=== PATIENT | male | born 1960 | race Caucasian/White ===

== ENCOUNTER 2018-08-28 17:53 | Emergency (ER) | payer MEDICAID ==
[~2018-08-28] VITALS: Ht 188 cm; Wt 104.5 kg
[2018-08-28 19:51] LABS: BASOPHILS % (AUTO) 0.8 % (0.0-2.0); EOSINOPHILS % (AUTO) 0.4 % (1.0-6.0); HEMATOCRIT 50.4 % (41-53); HEMOGLOBIN 17.5 g/dL (13.5-17.5); LYMPHOCYTES # (AUTO) 1.7 K/uL (1.0-4.8); LYMPHOCYTES % (AUTO) 18.4 % (22.0-44.0); MEAN CORPUSCULAR HEMOGLOBIN 32.1 pg (26.0-34.0); MEAN CORPUSCULAR HGB CONC 34.8 G/dL (31.0-37.0); MEAN CORPUSCULAR VOLUME 92 fL (80-100); MONOCYTES # (AUTO) 0.6 K/uL (0.1-1.0); MONOCYTES % (AUTO) 5.9 % (2.0-9.0); NEUTROPHILS % (AUTO) 74.5 % (40.0-70.0); PLATELET COUNT (AUTO) 193 K/uL (150-450); RED BLOOD CELL COUNT(AUTO) 5.46 MIL/uL (4.50-5.90); RED CELL DISTRIBUTION WIDTH 13.8 % (11.5-14.5)
[2018-08-28 20:05] LABS: ANION GAP 11 mmol/L (8-16); CALCIUM, TOTAL 9.5 mg/dL (8.8-10.5); CARBON DIOXIDE 26 mmol/L (22-29); CHLORIDE 105 mmol/L (98-107); CREATININE 0.79 mg/dL (0.60-1.30); GLOMERULAR FILTR. RATE CALC > 60 mL/min (>60); GLUCOSE,RANDOM 95 mg/dL (70-110); SODIUM SERUM 142 mmol/L (136-145); UREA NITROGEN, BLOOD 9 mg/dL (7-18)
[2018-08-28 20:09] LABS: ALANINE AMINOTRANSFERASE 29 U/L (12-78); ALBUMIN 4.1 g/dL (3.4-5.0); ALKALINE PHOSPHATASE 97 U/L (46-116); ASPARTATE AMINOTRANSFERASE 20 U/L (15-37); BILIRUBIN,TOTAL 1.2 mg/dL (0.1-1.0); TOTAL PROTEIN, SERUM 7.7 g/dL (6.4-8.2)
[2018-08-28 20:54] VITALS: BP 134/89
[2018-08-28] MEDS ORDERED: LORazepam 1 MG TABLET PO ONE (21:00)
== END 2018-08-28 20:56 | disposition home or self-care (01) ==
LOC: EMS 17:55
DX: F41.9 Anxiety disorder, unspecified (principal); F17.210 Nicotine dependence, cigarettes, uncomplicated
CPT/HCPCS: 36415; 80053; 85025; 99284; 99406; G0480

== ENCOUNTER 2018-11-05 07:53 | Emergency (ER) | payer MEDICAID ==
[~2018-11-05] VITALS: Ht 188 cm; Wt 100.0 kg
[2018-11-05] MEDS ORDERED: LORA1TAB3 PO (08:11)
[2018-11-05] MEDS ORDERED: SODIUM CHLORIDE 0.9% 1,000 ML IV ONE ×2 (08:30→09:45)
[2018-11-05 09:03] LABS: BASOPHILS % (AUTO) 1.6 % (0.0-2.0); EOSINOPHILS % (AUTO) 1.8 % (1.0-6.0); HEMATOCRIT 46.5 % (41-53); LYMPHOCYTES # (AUTO) 0.9 K/uL (1.0-4.8); MEAN CORPUSCULAR HEMOGLOBIN 31.6 pg (26.0-34.0); MEAN CORPUSCULAR HGB CONC 34.5 G/dL (31.0-37.0); MEAN CORPUSCULAR VOLUME 92 fL (80-100); MONOCYTES # (AUTO) 0.3 K/uL (0.1-1.0); MONOCYTES % (AUTO) 6.1 % (2.0-9.0); NEUTROPHILS # (AUTO) 3.9 K/uL (1.8-7.7); NEUTROPHILS % (AUTO) 73.5 % (40.0-70.0); PLATELET COUNT (AUTO) 161 K/uL (150-450); RED BLOOD CELL COUNT(AUTO) 5.07 MIL/uL (4.50-5.90); RED CELL DISTRIBUTION WIDTH 12.9 % (11.5-14.5)
[2018-11-05 09:08] LABS: ANION GAP 8 mmol/L (8-16); CARBON DIOXIDE 27 mmol/L (22-29); CHLORIDE 106 mmol/L (98-107); CREATININE 0.79 mg/dL (0.60-1.30); GLOMERULAR FILTR. RATE CALC > 60 mL/min (>60); GLUCOSE,RANDOM 95 mg/dL (70-110); POTASSIUM 3.9 mmol/L (3.5-5.1); SODIUM SERUM 141 mmol/L (136-145); UREA NITROGEN, BLOOD 9 mg/dL (7-18)
[2018-11-05 09:15] LABS: ALANINE AMINOTRANSFERASE 45 U/L (12-78); ALBUMIN 4.4 g/dL (3.4-5.0); ALKALINE PHOSPHATASE 82 U/L (46-116); ASPARTATE AMINOTRANSFERASE 31 U/L (15-37); BILIRUBIN,TOTAL 1.2 mg/dL (0.1-1.0); TOTAL PROTEIN, SERUM 7.4 g/dL (6.4-8.2)
[2018-11-05 11:35] VITALS: BP 124/76
== END 2018-11-05 11:48 | disposition home or self-care (01) ==
LOC: EMS 07:57
DX: J32.9 Chronic sinusitis, unspecified (principal); R42 Dizziness and giddiness; F17.210 Nicotine dependence, cigarettes, uncomplicated; F41.9 Anxiety disorder, unspecified
CPT/HCPCS: 36415; 70450; 80053; 85025; 93005; 96360; 96361; 99285; 99406; J7030

== ENCOUNTER 2021-04-30 18:23 | Emergency (ER) | payer MEDICAID ==
[~2021-04-30] VITALS: Ht 188 cm; Wt 100.0 kg
[~2021-04-30 18:23] MED LIST: LORA-1000 PO
[2021-04-30 21:19] VITALS: BP 141/77
== END 2021-04-30 22:32 | disposition home or self-care (01) ==
LOC: EMS 18:23
DX: H93.13 Tinnitus, bilateral (principal); F41.9 Anxiety disorder, unspecified; F17.210 Nicotine dependence, cigarettes, uncomplicated
CPT/HCPCS: 70450; 99284

== ENCOUNTER 2023-08-03 19:34 | Emergency (ER) | payer MEDICAID ==
[~2023-08-03] VITALS: Ht 188 cm; Wt 102.3 kg
[2023-08-03 19:39] VITALS: TEMP 98.9
[2023-08-03] MEDS ORDERED: [UNRECOGNIZED DRUG - OTHER] PO (21:26)
[2023-08-03] MEDS ORDERED: [UNRECOGNIZED DRUG - OTHER] PO (21:26)
[2023-08-03] MEDS ORDERED: METHOCARBAMOL 100 MG/ML 10 ML VIAL IVP ONE (21:45)
[2023-08-03] MEDS ORDERED: KETOROLAC TROMETHAMINE 30 MG/ML VIAL IVP ONE (21:45)
[2023-08-03] MEDS ORDERED: ONDANSETRON HCL 4 MG/2 ML VIAL IVP ONE (21:45)
[2023-08-03] MEDS ORDERED: MORPHINE SULFATE 4 MG/ML SYRINGE IVP ONE (21:45)
[2023-08-03 22:51] VITALS: BP 150/84; PULSE 85; RESP 16
== END 2023-08-03 23:19 | disposition home or self-care (01) ==
LOC: EMS 19:36
DX: M54.32 Sciatica, left side (principal); F41.9 Anxiety disorder, unspecified; M19.90 Unspecified osteoarthritis, unspecified site; F17.210 Nicotine dependence, cigarettes, uncomplicated
CPT/HCPCS: 99284; 96374; 96375; J1885; J2270; J2405; J2800

== ENCOUNTER 2024-12-07 07:57 | Emergency (ER) | payer MEDICAID ==
[~2024-12-07] VITALS: Ht 188 cm; Wt 104.5 kg
[~2024-12-07 07:57] MED LIST changes: +[UNRECOGNIZED DRUG - OTHER] PO; +[UNRECOGNIZED DRUG - OTHER] PO
[2024-12-07 08:08] VITALS: BP 135/85; PULSE 87; RESP 20; TEMP 97.9; O2SAT 94
[2024-12-07 08:19] LABS: COVID AG,FIA SOURCE NASAL SWAB
[2024-12-07 08:56] LABS: BASOPHILS % (AUTO) 0.6 % (0.0-2.0); EOSINOPHILS % (AUTO) 3.5 % (1.0-6.0); HEMATOCRIT 47.8 % (41-53); HEMOGLOBIN 16.1 g/dL (13.5-17.5); LYMPHOCYTES # (AUTO) 1.3 K/uL (1.0-4.8); MEAN CORPUSCULAR HEMOGLOBIN 30.9 pg (26.0-34.0); MEAN CORPUSCULAR HGB CONC 33.7 G/dL (31.0-37.0); MEAN CORPUSCULAR VOLUME 92 fL (80-100); MONOCYTES # (AUTO) 0.6 K/uL (0.1-1.0); MONOCYTES % (AUTO) 6.9 % (2.0-9.0); NEUTROPHILS # (AUTO) 7.1 K/uL (1.8-7.7); PLATELET COUNT (AUTO) 160 K/uL (150-450); RED CELL DISTRIBUTION WIDTH 13.4 % (11.5-14.5); WHITE BLOOD COUNT (AUTO) 9.4 K/uL (4.5-11.0)
[2024-12-07 08:58] LABS: SARS-COV2 (COVID) ANTIGEN,FIA Negative (Negative)
[2024-12-07 08:59] LABS: INFLUENZA TYPE A NEGATIVE FOR TYPE A (NEGATIVE); INFLUENZA TYPE B NEGATIVE FOR TYPE B (NEGATIVE)
[2024-12-07 09:04] LABS: ANION GAP 7 mmol/L (8-16); CALCIUM, TOTAL 8.7 mg/dL (8.8-10.5); CARBON DIOXIDE 28 mmol/L (22-29); CHLORIDE 105 mmol/L (98-107); CREATININE 0.82 mg/dL (0.60-1.30); GLOMERULAR FILTR. RATE CALC > 60 mL/min (>60); GLUCOSE,RANDOM 98 mg/dL (70-110); POTASSIUM 4.1 mmol/L (3.5-5.1); SODIUM SERUM 140 mmol/L (136-145); UREA NITROGEN, BLOOD 13 mg/dL (7-18)
[2024-12-07 09:14] LABS: TROPONIN I-HIGH SENSITIVITY 40 ng/L (<76)
[2024-12-07 09:30] LABS: B-TYPE NATRIURETIC PEPTIDE 27 pg/mL (0-100)
[2024-12-07 09:32] LABS: ALANINE AMINOTRANSFERASE 45 U/L (12-78); ALBUMIN 3.7 g/dL (3.4-5.0); ALKALINE PHOSPHATASE 127 U/L (46-116); ASPARTATE AMINOTRANSFERASE 30 U/L (15-37); BILIRUBIN,TOTAL 1.4 mg/dL (0.1-1.0); CREATINE KINASE, TOTAL ONLY 108 U/L (39-308); TOTAL PROTEIN, SERUM 7.1 g/dL (6.4-8.2)
[2024-12-07] MEDS ORDERED: PRED-554 PO (09:39)
[2024-12-07] MEDS ORDERED: AZIT-164 PO (09:39)
[2024-12-07] MEDS: PredniSONE 20 MG TABLET PO ONE (10:01)
[2024-12-07] MEDS: AZITHROMYCIN 500 MG TABLET PO ONE (10:02)
== END 2024-12-07 10:08 | disposition home or self-care (01) ==
LOC: EMS 07:58
DX: J40 Bronchitis, not specified as acute or chronic (principal); F41.9 Anxiety disorder, unspecified; M19.90 Unspecified osteoarthritis, unspecified site; F17.210 Nicotine dependence, cigarettes, uncomplicated; Z79.899 Other long term (current) drug therapy; Z86.718 Personal history of other venous thrombosis and embolism; Z20.822 Contact with and (suspected) exposure to COVID-19
CPT/HCPCS: 99285; 71045; 87426; 80048; 80076; 82550; 83880; 84484; 85025; 87804; 36415; 93005; J0456; J7512

== ENCOUNTER 2025-05-02 16:48 | Emergency (ER) | payer MEDICAID ==
[~2025-05-02] VITALS: Ht 188 cm; Wt 104.5 kg
[~2025-05-02 16:48] MED LIST changes: +AZIT-164 PO; -LORA-1000 PO; +LORA1TAB25 PO; +PRED-554 PO
[2025-05-02 16:56] VITALS: BP 112/70; PULSE 81; RESP 19; TEMP 98.2; O2SAT 95
[2025-05-02 17:25] LABS: COVID AG,FIA SOURCE NASAL SWAB
[2025-05-02 17:47] LABS: SARS-COV2 (COVID) ANTIGEN,FIA Negative (Negative)
[2025-05-02 17:48] LABS: INFLUENZA TYPE A NEGATIVE FOR TYPE A (NEGATIVE); INFLUENZA TYPE B NEGATIVE FOR TYPE B (NEGATIVE)
[2025-05-02] MEDS: GuaiFENesin/D-METHORPHAN [SUGAR-FREE] 200-20MG/10 ML SYRUP UDCUP PO ONE (18:13)
[2025-05-02] MEDS: ALBUTEROL SULFATE HFA 90 MCG/PUFF 8 GM INHALER IH ONE (18:13)
[2025-05-02] MEDS ORDERED: BENZ-227 PO (21:44)
== END 2025-05-02 21:54 | disposition home or self-care (01) ==
LOC: EMS 16:48
DX: R05.3 Chronic cough (principal); M19.90 Unspecified osteoarthritis, unspecified site; F17.210 Nicotine dependence, cigarettes, uncomplicated; Z71.6 Tobacco abuse counseling; Z20.822 Contact with and (suspected) exposure to COVID-19; Z86.718 Personal history of other venous thrombosis and embolism
CPT/HCPCS: 99284; 71045; 99406; 87426; 87804; 94640; J3535